=== PATIENT | female | born 1985 | race Caucasian/White ===

== ENCOUNTER 2020-09-03 21:20 | Emergency (ER) | payer OTHER ==
[2020-09-03] MEDS ORDERED: VIVLODEX5 MG PO (21:48)
[2020-09-03 22:04] LABS: EOS # 0.1 (0.04-0.40); EOS % 2.3 % (1.0-5.0); HEMATOCRIT 42.1 % (37.0-47.0); HEMOGLOBIN 14.3 g/dL (12.5-16.0); LYMPH# 0.8 (1.50-4.00); MEAN CELL VOLUME 85 fl (78-100); MEAN CORPUSCULAR HEMOGLOBIN 29 pg (27-31); MEAN CORPUSCULAR HGB CONC 34 g/dL (33-37); MEAN PLATELET VOLUME 8.6 fl (7.4-10.4); MONO # 0.5 (0.20-0.80); NEU # 2.6 (1.40-6.50); PLATELET COUNT 228 K/mm3 (130-400); RED BLOOD COUNT 4.96 M/mm3 (4.10-5.30); RED CELL DISTRIBUTION WIDTH 12.5 % (11.5-14.5)
[2020-09-03 22:13] LABS: ALBUMIN 4.5 g/dL (3.5-5.0)
[2020-09-03 22:14] LABS: POTASSIUM 3.5 mmol/L (3.5-5.1)
[2020-09-03 22:15] LABS: CALCIUM 8.9 mg/dL (8.3-10.5)
[2020-09-03 22:16] LABS: TOTAL PROTEIN 7.3 g/dL (6.4-8.3)
[2020-09-03 22:18] LABS: TOTAL BILIRUBIN 0.6 mg/dL (0.2-1.2)
[2020-09-03 22:25] LABS: URINE APPEARANCE CLEAR; URINE COLOR YELLOW
[2020-09-03 22:26] LABS: URINE BILIRUBIN NEGATIVE (NEGATIVE); URINE BLOOD NEGATIVE (NEGATIVE); URINE GLUCOSE NEGATIVE (NEGATIVE); URINE KETONE 1+ (NEGATIVE); URINE LEUKOCYTE ESTERASE NEGATIVE (NEGATIVE); URINE NITRATE NEGATIVE (NEGATIVE); URINE PROTEIN(semi-quant) TRACE mg/dL (NEGATIVE); URINE UROBILINOGEN NORMAL (NORMAL); URINE WBC 0-1 /hpf (0-3)
[2020-09-03] MEDS ORDERED: ZOFRAN ODT4 MG PO (23:58)
[2020-09-04 00:04] VITALS: BP 105/84
== END 2020-09-04 00:04 | disposition home or self-care (01) ==
LOC: ED 21:20
PROVIDERS: Physician Assistant
DX: R10.9 Unspecified abdominal pain (principal); Z90.49 Acquired absence of other specified parts of digestive tract; Z90.710 Acquired absence of both cervix and uterus; Z79.1 Long term (current) use of non-steroidal anti-inflammatories (NSAID)
CPT/HCPCS: J1885; J2405; J7030; Q9967

== ENCOUNTER → 2021-06-02 | Outpatient (CLI) | payer OTHER ==
[~2021-06-02] MED LIST: VIVLODEX5 MG PO; ZOFRAN ODT4 MG PO
[2021-06-02 10:57] LABS: BASO # 0.03 K/mm3 (0.02-0.10); EOS # 0.08 K/mm3 (0.04-0.40); EOS % 1.9 % (1.0-5.0); HEMATOCRIT 40.1 % (37.0-47.0); HEMOGLOBIN 13.5 g/dL (12.5-16.0); MEAN CELL VOLUME 86 fl (78-100); MEAN CORPUSCULAR HEMOGLOBIN 29 pg (27-31); MEAN CORPUSCULAR HGB CONC 34 g/dL (33-37); MEAN PLATELET VOLUME 8.4 fl (7.4-10.4); MONO # 0.53 K/mm3 (0.20-0.80); NEU # 2.52 K/mm3 (1.40-6.50); PLATELET COUNT 191 K/mm3 (130-400); RED BLOOD COUNT 4.64 M/mm3 (4.10-5.30); RED CELL DISTRIBUTION WIDTH 12.1 % (11.5-14.5); WHITE BLOOD COUNT 4.3 K/mm3 (4.8-10.8)
[2021-06-02 11:14] LABS: ALBUMIN 3.9 g/dL (3.5-5.0)
[2021-06-02 11:15] LABS: CALCIUM 9.6 mg/dL (8.3-10.5)
[2021-06-02 11:17] LABS: TOTAL PROTEIN 6.8 g/dL (6.4-8.3)
[2021-06-02 11:18] LABS: TOTAL BILIRUBIN 0.4 mg/dL (0.2-1.2)
== END ==
LOC: LAB 10:45
PROVIDERS: Nurse Practitioner Family
DX: R10.32 Left lower quadrant pain (principal)

== ENCOUNTER 2022-02-03 08:00 | Outpatient (RCR) | payer OTHER | END 2022-02-25 | disposition home or self-care (01) | LOC: PT | DX: S43.432D Superior glenoid labrum lesion of left shoulder, subsequent encounter (principal) ==

== ENCOUNTER 2022-03-02 11:00 | Outpatient (RCR) | payer OTHER | END 2022-03-28 | disposition home or self-care (01) | LOC: PT | DX: S43.432D Superior glenoid labrum lesion of left shoulder, subsequent encounter (principal); X58.XXXD Exposure to other specified factors, subsequent encounter ==

== ENCOUNTER 2022-03-30 07:53 | Outpatient (RCR) | payer OTHER | END 2022-04-28 | disposition home or self-care (01) | LOC: PT | DX: S43.432D Superior glenoid labrum lesion of left shoulder, subsequent encounter (principal); X58.XXXD Exposure to other specified factors, subsequent encounter ==

== ENCOUNTER 2022-04-29 09:12 | Outpatient (RCR) | payer OTHER | END 2022-05-25 16:27 | disposition still patient (30) | LOC: PT 09:12 | DX: S43.432D Superior glenoid labrum lesion of left shoulder, subsequent encounter (principal); X58.XXXD Exposure to other specified factors, subsequent encounter ==